=== PATIENT | female | born 1985 | race Caucasian/White ===

== ENCOUNTER 2018-01-05 18:33 | Emergency (ER) | payer OTHER ==
[2018-01-05 18:54] VITALS: BP 129/83; PULSE 91; TEMP 98.5; BMI 25.7
--- NOTE | 2018-01-05 19:17 | PDOC ---
History of Present Illness - History of Present Illness Initial Comments: 01/05/18 20:04 Patient is a 32F, , no significant PMHx, who presents today with vaginal spotting and pain for 3 days. Patient states that on Thursday she began experiencing some vaginal spotting and pain in the lower abdomen. Yesterday, she experienced larger blood clots with increased pain. She states this is her 1st . Last menses - . MEDICATIONS: reviewed ALLERGIES: As per nursing notes Review of Systems: General: No fevers or chills, no weakness, no weight loss HEENT: No change in vision. No sore throat,. No ear pain CardioVascular: No chest pain or shortness of breath Respiratory:No cough, or wheezing. Gastrointestinal: +lower abdominal pain. no nausea, vomiting, diarrhea or constipation, No rectal bleeding Genitourinary: No dysuria, hematuria, or frequency Gynecological: +blood clots. Musculoskeletal: No joint or muscle pain or swelling Neurologic: No headache, vertigo, dizziness or loss of consciousness Psychiatric: nor depression Skin: No rashes or easy bruising Endocrine: no increased thirst or abnormal weight change Allergic: no skin or latex allergy All other systems reviewed and normal Physical Exam: General: Well-nourished well-developed individual, no acute distress HEENT: Throat: Normal, tonsils normal, no erythema or exudate Neck: Supple, no meningeal signs, no lymphadenopathy Eyes::Pupils equal reactive and round, extraocular motion intact Chest: Nontender to palpation Abdomen: Soft, nondistended, normal bowel sounds, nontender to palpation diffusely Extremities: Warm, dry, no cyanosis, clubbing, or edema Skin: No rashes Neuro: Alert and oriented x3, nonfocal exam, grossly intact, normal gait Psych: Normal mood and affect Pelvic Exam: Moderate amount of blood in vaginal vault. No tissue around cervical OS, OS is closed. No adnexal masses or tenderness by manual exam. <Yanet Kelly - Last Filed: 01/05/18 20:04> - General History Source: Patient Exam Limitations: No Limitations - History of Present Illness Initial Comments: A portion of this note was documented by scribe services under my direction. I have reviewed the details of the note, within reason, and agree with the documentation. The case summary and management plan written by me. Medical decision making this is a 32-year-old female who comes in with complaints of vaginal bleeding 2 days. Patient last menstrual period was approximately 2 months ago when she has a positive urine test. On my exam patient has mild amount of bleeding with us moderate amount of blood in the vaginal vault. Patient's exam is nontender and I feel no adnexal masses Will obtain workup for threatened versus completed versus ectopic . CBC, comp, quantitative hCG sent pelvic ultrasound ordered. 01/05/18 22:13 Reevaluation. Patient remains clinically unchanged bleeding has slowed significantly Patient had an ultrasound that was showed no intrauterine gestation and there was a small amount of free fluid within the cul-de-sac and small leiomyoma and a half a centimeter right ovarian hemorrhagic cyst. Patient is beta hCG was 288 Patient's symptoms are consistent with a completed Patient discharged home to will follow-up with her OB in the morning <Aly Townsend I - Last Filed: 01/05/18 22:44> - General Chief Complaint: Vaginal Bleeding Stated Complaint: VAGINAL BLEEDING Time Seen by Provider: 01/05/18 19:15 Past History <Yanet Kelly - Last Filed: 01/05/18 20:04> - Past Medical History COPD: No - Reproductive History Is Patient Now?: (POSITIVE HOME PGU) (#): 0 Para: 0 Therapeutic (s) & number: No Spontaneous : 0 - Suicide/Smoking/Psychosocial Hx Smoking History: Never smoked Have you smoked in the past 12 months: No Information on smoking cessation initiated: No Hx Alcohol Use: No Drug/Substance Use Hx: No Substance Use Type: None <Aly Townsend I - Last Filed: 01/05/18 22:44> - Past Medical History Allergies/Adverse Reactions: Allergies Allergy/AdvReac Type Severity Reaction Status Date / Time No Known Allergies Allergy Verified 01/05/18 18:35 Home Medications: Ambulatory Orders NK [No Known Home Medication] 01/05/18 Review of Systems - Review of Systems Comments:: 01/05/18 20:10 see HPI <Yanet Kelly - Last Filed: 01/05/18 20:04> *Physical Exam - Vital Signs Last Vital Signs Temp Pulse Resp BP Pulse Ox 98.5 F 91 H 20 129/83 100 01/05/18 18:34 01/05/18 18:34 01/05/18 18:34 01/05/18 18:34 01/05/18 18:34 - Physical Exam Comments: 01/05/18 20:11 see HPI <Yanet Kelly - Last Filed: 01/05/18 20:04> - Vital Signs Last Vital Signs Temp Pulse Resp BP Pulse Ox 98.5 F 91 H 20 129/83 100 01/05/18 18:34 01/05/18 18:34 01/05/18 18:34 01/05/18 18:34 01/05/18 18:34 <Aly Townsend I - Last Filed: 01/05/18 22:44> ED Treatment Course - LABORATORY CBC & Chemistry Diagram: 01/05/18 19:56 01/05/18 19:56 - ADDITIONAL ORDERS Additional order review: Laboratory Results 01/05/18 19:05 Urine HCG, Qual Positive <Yanet Kelly - Last Filed: 01/05/18 20:04> - LABORATORY CBC & Chemistry Diagram: 01/05/18 19:56 01/05/18 19:56 <Aly Townsend I - Last Filed: 01/05/18 22:44> *DC/Admit/Observation/Transfer - Attestations Scribe Attestion: 01/05/18 20:11 Documentation prepared by Yanet Kelly, acting as medical legal investigator for Aly Townsend MD. <Yanet Kelly - Last Filed: 01/05/18 20:04> - Discharge Dispostion Admit: No <Aly Townsend I - Last Filed: 01/05/18 22:44> Diagnosis at time of Disposition: Complete - Discharge Dispostion Disposition: HOME - Patient Instructions Additional Instructions: Your bleeding should gradually decrease over the next couple a days. Your patient also decrease over the next couple a days If either your pain increases significantly or you're bleeding does not decrease or increases significantly it is important that you call the OB doctor and get an appointment. The OB doctors associated with the [facility] are at [address] [place] [address] in [facility]. There phone number is [phone]. If you call that number and tell them that you were in [place] emergency Department and we wanted to to follow up with them as soon as possible they should be able to get you in this week. Return to the [facility] emergency department in [place] immediately with ANY new, persistent or worsening symptoms. Continue any medications as previously prescribed by your physician. . Please make sure your doctor reviews the results of your emergency evaluation. Thank you for coming to the Emergency Department today for your care. It was a pleasure to see you today. Please note that your evaluation is INCOMPLETE until you follow-up with your doctor.
[2018-01-05 20:06] LABS: BASO % 0.5 % (0-2.0); EOS % 1.9 % (0-4.5); HEMATOCRIT 41.5 % (32.4-45.2); HEMOGLOBIN 14.2 GM/dl (10.7-15.3); LYMPH % 32.2 % (8-40); MCH 30.1 pg (25.7-33.7); MCHC 34.1 g/dl (32.0-36.0); MEAN CELL VOLUME 88.4 fl (80-96); MEAN PLT VOLUME 8.8 fl (7.5-11.1); MONO % 10.9 % (3.8-10.2); NEUT % 54.5 % (42.8-82.8); PLATELET COUNT 262 K/MM3 (134-434); RDW 12.6 % (11.6-15.6); WHITE BLOOD COUNT 8.2 K/mm3 (4.0-10.8)
[2018-01-05 20:17] LABS: ALBUMIN 4.5 g/dl (3.5-5.0); ALK PHOS 57 U/L (32-92); ANION GAP 2 (8-16); BLOOD UREA NITROGEN 12 mg/dl (7-18); CALCIUM 8.8 mg/dl (8.4-10.2); CHLORIDE 104 mmol/L (98-107); CO2 28 mmol/L (22-28); GLUCOSE,RANDOM 91 mg/dl (74-106); POTASSIUM 3.9 mmol/L (3.5-5.1); SGOT/AST 24 U/L (10-42); SGPT/ALT 29 U/L (10-40); SODIUM 134 mmol/L (136-145); TOT PROT 7.7 g/dl (6.4-8.3)
[2018-01-05 20:26] LABS: CREATININE < 0.8 mg/dl (0.6-1.3)
[2018-01-05 20:27] LABS: BILIRUBIN,TOTAL 0.5 mg/dl (0.2-1.0)
== END 2018-01-05 22:50 | disposition home or self-care (01) ==
LOC: FER 18:33
DX: O03.9 Complete or unspecified spontaneous abortion without complication (principal)
CPT/HCPCS: 36415; 76815-TC; 80053; 84702; 84703; 85025; 86850; 86900; 86901; 99282-25

== ENCOUNTER 2018-10-10 12:10 | Emergency (ER) | payer OTHER ==
--- NOTE | 2018-10-10 12:22 | PDOC ---
History of Present Illness - General Chief Complaint: Vaginal Bleeding Stated Complaint: VAGINAL BLEED, Time Seen by Provider: 10/10/18 12:12 - History of Present Illness Initial Comments: 10/10/18 12:15 33 yo , LMP 07/14/18, at 8 wga confirmed via TVUS, with h/o hypothyrodidsim who p/w vaginal bleeding. Patient reports acute onset of bright red blood per vagina this morning. Endorses clotting. Has been placing paper towels in vagina. Endorses diffuse lower, crampy abdominal pain, also beginning this morning at rest, with no identifiable triggers or alleviators. Denies abdominal trauma, intercourse, dyspareurnia, vaginal discharge. Patient denies palpitations, cough, wheezing, leg pain/swelling, N/V, F,C, CP, SOB, urinary complaints, pelvic pain, hematuria, BPR,diarrhea, constipation, lightheadedness, weakness, sensory changes. PMHx: as noted above ROS: as noted SHx: Denies Etoh, tobacco, IVDA. Denies h/o STI's. Allergies: NKDA Past History - Past Medical History Allergies/Adverse Reactions: Allergies Allergy/AdvReac Type Severity Reaction Status Date / Time No Known Allergies Allergy Verified 10/10/18 12:11 Home Medications: Ambulatory Orders Levothyroxine [Synthroid -] 25 mcg PO DAILY 10/10/18 COPD: No - Reproductive History (#): 0 Para: 0 Therapeutic (s) & number: No Spontaneous : 0 - Suicide/Smoking/Psychosocial Hx Smoking History: Never smoked Have you smoked in the past 12 months: No Hx Alcohol Use: No Drug/Substance Use Hx: No Substance Use Type: None Review of Systems - Review of Systems Comments:: 10/10/18 12:18 GENERAL/CONSTITUTIONAL: No fever or chills. No weakness. HEAD, EYES, EARS, NOSE AND THROAT: No change in vision. No ear pain or discharge. No sore throat. CARDIOVASCULAR: No chest pain or shortness of breath RESPIRATORY: No cough, wheezing, or hemoptysis. + Nasuea. No vomiting, diarrhea or constipation. GENITOURINARY: + Vaginal bleeding. No dysuria, frequency, or change in urination. MUSCULOSKELETAL: No joint or muscle swelling or pain. No neck or back pain. SKIN: No rash NEUROLOGIC: No headache, vertigo, loss of consciousness, or change in strength/ sensation. ENDOCRINE: No increased thirst. No abnormal weight change HEMATOLOGIC/LYMPHATIC: No anemia, easy bleeding, or history of blood clots. ALLERGIC/IMMUNOLOGIC: No hives or skin allergy. *Physical Exam - Physical Exam Comments: 10/10/18 12:19 GENERAL: Awake, alert, and fully oriented, in no acute distress HEAD: No signs of trauma, normocephalic, atraumatic EYES: PERRLA, EOMI, sclera anicteric, conjunctiva clear ENT: Hearing grossly normal, nares patent, oropharynx clear without exudates. Moist mucosa NECK: Normal ROM, supple, no lymphadenopathy, JVD, or masses LUNGS: No distress, speaks full sentences, clear to auscultation bilaterally HEART: Regular rate and rhythm, normal S1 and S2, no murmurs, rubs or gallops, peripheral pulses normal and equal bilaterally. ABDOMEN: + Slight lower abdominal ttp. Soft, NDS, normoactive bowel sounds. No guarding, no rebound. No masses GENITOURINARY: Nml appearing external genitalia, + Blood pooling in vaginal vault with clotting, cervical os closed. Absent adenexal ttp. Neg CMT on BM. Neg discharge or lesions. EXTREMITIES : Normal inspection, Normal range of motion, no edema. No clubbing or cyanosis. SKIN: Warm, Dry, normal turgor, no rashes or lesions noted ED Treatment Course - LABORATORY CBC & Chemistry Diagram: 10/10/18 12:45 10/10/18 12:45 Medical Decision Making - Medical Decision Making 10/10/18 12:17 33 yo , LMP 07/14/18, at 7 wga confirmed via TVUS, with h/o hypothyrodidsim who p/w vaginal bleeding, and crampy lower abdominal pain beginning this AM. VSS, AF, A&Ox3. + Lower abdominal ttp. + blood pooling in vaginal vault, with clotting. Cervical os closed. Will assess for viable IUP and consider related causes of vaginal bleeding in first trimester including threatened , ectopic , subchorionic hemorrhage. ED Course: CBC, CMP, T&S, BHCG UA, Ucx TVUS 10/10/18 14:02 CBC,CMP: Unremarkable UA: 3+ Blood, 20-30 RBC, neg nitirite, neg LE 10/10/18 15:29 HC 10/10/18 15:48 TVUS: intrauterine gestational sac (8w0d) with absent yolk sac or pole. Discussed findings with patient. 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 Thursday (10-12-18) Stable for d/c with return precautions *DC/Admit/Observation/Transfer Diagnosis at time of Disposition: Vaginal bleeding in patient at less than 20 weeks gestation - Discharge Dispostion Disposition: HOME Condition at time of disposition: Stable Decision to Admit order: No - Referrals - Patient Instructions Printed Discharge Instructions: DI for Vaginal Bleeding During Additional Instructions: Please return to the emergency department with any new or worsening symptoms or concerns. Please follow up with your primary care or Electrical Engineering Manager physician physician within 72 hours. Return to ED with any increased vaginal bleeding, pelvic and abdominal pain, fevers/chills. - Post Discharge Activity Forms/Work/School Notes: Back to Work - Attestations Physician Attestion: 10/10/18 12:18 I attest to the information provided in this note.
[2018-10-10 12:31] VITALS: BP 124/89; PULSE 83; TEMP 98.6; BMI 27.1
[2018-10-10 13:04] LABS: BASO % 0.2 % (0-2.0); EOS % 1.2 % (0-4.5); HEMATOCRIT 43.4 % (32.4-45.2); HEMOGLOBIN 14.4 GM/dl (10.7-15.3); LYMPH % 25.3 % (8-40); MCH 29.7 pg (25.7-33.7); MCHC 33.2 g/dl (32.0-36.0); MEAN CELL VOLUME 89.5 fl (80-96); MEAN PLT VOLUME 9.7 fl (7.5-11.1); MONO % 5.4 % (3.8-10.2); NEUT % 67.9 % (42.8-82.8); PLATELET COUNT 257 K/MM3 (134-434); RBC 4.85 M/mm3 (3.60-5.2); RDW 13.1 % (11.6-15.6); WHITE BLOOD COUNT 10.4 K/mm3 (4.0-10.8)
[2018-10-10 13:09] LABS: URINE APPEARANCE Clear; URINE BILIRUBIN Negative (NEGATIVE); URINE COLOR Yellow; URINE GLUCOSE (UA) Negative (NEGATIVE); URINE KETONE Negative (NEGATIVE); URINE LEUK ESTERASE Negative (NEGATIVE); URINE NITRITE Negative (NEGATIVE); URINE PROTEIN Negative (NEGATIVE); URINE UROBILINOGEN 0.2 (0.2-1.0)
--- NOTE | 2018-10-10 13:16 | PDOC ---
Attending Attestation - Resident Resident Name: Delfino Cagleson - ED Attending Attestation I have performed the following: I have examined & evaluated the patient, The case was reviewed & discussed with the resident, I agree w/resident's findings & plan - HPI HPI: 10/10/18 13:16 33 yo , LMP 07/14/18, at 8 wga confirmed via TVUS, with h/o hypothyrodidsim who p/w vaginal bleeding, started with spotting yesterday and today with increased bright red on wiping. Associated with suprapubic cramping. LMP 07/14/18 - last US 2 weeks ago, with no FHR. - Physicial Exam PE: 10/10/18 14:00 NAD, well appearing, PERRL, EOMI, MMM, nl conjunctiva, anicteric; neck supple. lungs clear, RRR, abdomen soft nontender. HERRERA x4, no focal neuro deficits. No peripheral edema. normal color for ethnicity, WWP. Pelvic exam with resident chaperoned by me. Os closed. +blood in vaginal vault. No CMT - Medical Decision Making 10/10/18 14:01 Hpi as documented, vitals wnl. DDx female: miscarriage, demise, subchorionic hematoma, UTI in in . Fibroid uterus, vaginitis, infection, electrolyte/metabolic derangements. Labs and lytes normal. UA neg for bacteria/infection, +blood c/w VB. Beta [id number] Rh _ no rhogam indicated. TVUS_ no definitive IUP visualized. small pelvic FF. normal ovarian flow. corpus luteal cyst seen, no FP/YS with gestational sac intrauterine. Dispo: OB followup, bleeding precautions, vitamins, rest and hydration advised. repeat US, precautions for miscarriage/threatened . 10/10/18 14:02 10/10/18 14:28 10/10/18 15:46
[2018-10-10 13:19] LABS: ALBUMIN 4.4 g/dl (3.5-5.0); ALK PHOS 58 U/L (32-92); ANION GAP 9 MMOL/L (8-16); BILIRUBIN,TOTAL 0.4 mg/dl (0.2-1.0); BLOOD UREA NITROGEN 7 mg/dl (7-18); CALCIUM 9.3 mg/dl (8.4-10.2); CHLORIDE 101 mmol/L (98-107); CO2 25 mmol/L (22-28); CREATININE < 0.6 mg/dl (0.6-1.3); GLUCOSE,RANDOM 90 mg/dl (74-106); POTASSIUM 3.8 mmol/L (3.5-5.1); SGOT/AST 24 U/L (10-42); SGPT/ALT 34 U/L (10-40); SODIUM 135 mmol/L (136-145); TOT PROT 7.8 g/dl (6.4-8.3)
[2018-10-10 13:50] LABS: EPI CELLS FEW /HPF; URINE RBC 20-40 /hpf (0-3); URINE WBC 0-2 (0-5)
== END 2018-10-10 16:03 | disposition home or self-care (01) ==
LOC: FER 12:10
DX: O26.891 Other specified pregnancy related conditions, first trimester (principal); Z3A.08 8 weeks gestation of pregnancy; N93.9 Abnormal uterine and vaginal bleeding, unspecified; E03.9 Hypothyroidism, unspecified
CPT/HCPCS: 36415; 76801-TC; 80053; 81003; 81015; 84702; 85025; 86850; 86900; 86901; 87086; 99282-25